=== PATIENT | male | born 2000 | race Caucasian/White ===

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

== ENCOUNTER 2024-01-09 07:19 | Emergency (ER) | payer OTHER ==
[~2024-01-09] VITALS: Ht 170.2 cm; Wt 72.1 kg
[2024-01-09 07:35] VITALS: BP 116/62; PULSE 76; RESP 22; TEMP 98.6; O2SAT 97
[2024-01-09 08:25] VITALS: O2SAT 97
[2024-01-09] MEDS: KETOROLAC 60 MG/2 ML VIAL IM ONE (08:25)
[2024-01-09] MEDS ORDERED: ACET-8905 PO (08:36)
[2024-01-09] MEDS ORDERED: IBUP-2213 PO (08:36)
== END 2024-01-09 08:47 ==
LOC: MED 07:19
DX: R51.9 Headache, unspecified (principal); R11.2 Nausea with vomiting, unspecified; Z72.89 Other problems related to lifestyle; Z79.899 Other long term (current) drug therapy
CPT/HCPCS: 96372; 99283; J1885